=== PATIENT | female | born 1985 | race African-American/Black ===

== ENCOUNTER 2018-10-26 17:04 | Outpatient (CLI) | payer BC | END 2018-10-26 23:10 | disposition home or self-care (01) | LOC: OBT 17:04 → L-D 17:07 → OBT 23:10 | DX: O62.9 Abnormality of forces of labor, unspecified (principal); Z3A.38 38 weeks gestation of pregnancy | CPT/HCPCS: 76818 ==

== ENCOUNTER 2018-10-27 20:26 | Outpatient (CLI) | payer BC | END 2018-10-27 21:40 | disposition home or self-care (01) | LOC: OBT 20:26 → L-D 20:27 → OBT 21:40 | DX: O62.9 Abnormality of forces of labor, unspecified (principal); Z3A.39 39 weeks gestation of pregnancy | CPT/HCPCS: G0463 ==

== ENCOUNTER 2018-11-01 20:22 | Inpatient (IN) | payer BC ==
[2018-11-01] MEDS ORDERED: LACTATED RINGER'S 1,000 ML IV (23:47)
[2018-11-02] MEDS ORDERED: LIDOCAINE 1% (MPF) 30 ML INJ INJ
[2018-11-02] MEDS ORDERED: CARBOPROST 250 MCG INJ IM
[2018-11-02] MEDS ORDERED: OXYTOCIN 30 UNITS/LR 500 ML IV ×2
[2018-11-02] MEDS ORDERED: MISOPROSTOL 200 MCG TAB PR
[2018-11-02] MEDS ORDERED: BUTORPHANOL 2 MG INJ IV
[2018-11-02] MEDS ORDERED: METHYLERGONOVINE 0.2 MG INJ IM
[2018-11-02] MEDS: LACTATED RINGER'S 1,000 ML IV ×5 (00:51→20:47)
[2018-11-02] MEDS ORDERED: ONDANSETRON 4 MG INJ IV (01:30)
[2018-11-02] MEDS ORDERED: DIPHENHYDRAMINE 50 MG INJ IV (01:30)
[2018-11-02] MEDS ORDERED: NALOXONE (0.4 MG/ML) INJ IV (01:30)
[2018-11-02] MEDS ORDERED: FENTAnyl 2MCG/ML-ROPIV 0.2% 100 ML (01:33)
[2018-11-02 01:49] LABS: ADD MAN DIFF? NO
[2018-11-02 01:52] LABS: BASOPHILS % 0.5 % (0.0-2.0); EOSINOPHILS # 0.2 10^3/ul (0.0-0.5); EOSINOPHILS % 2.5 % (0.0-7.0); HEMATOCRIT 31.4 % (37.0-47.0); HEMOGLOBIN 10.5 g/dl (12.0-16.0); LYMPHOCYTES # 2.1 10^3/ul (0.8-2.9); LYMPHOCYTES % 25.9 % (15.0-51.0); MEAN CORPUSCULAR HEMOGLOBIN 31.9 pg (29.0-33.0); MEAN CORPUSCULAR HGB CONC 33.4 g/dl (32.0-37.0); MEAN CORPUSCULAR VOLUME 95.4 fl (82.0-101.0); MEAN PLATELET VOLUME 8.7 fl (7.4-10.4); MONOCYTE # 0.5 10^3/ul (0.3-0.9); NEUTROPHIL # 5.3 10^3/ul (1.6-7.5); NEUTROPHILS % 64.5 % (39.0-77.0); PLATELET COUNT 223 10^3/UL (140-415); RED BLOOD COUNT 3.29 10^6/ul (4.20-5.40); RED CELL DISTRIBUTION WIDTH 13.1 % (11.5-14.5)
[2018-11-02 01:52] LABS: WHITE BLOOD COUNT 8.1 10^3/ul (4.8-10.8)
[2018-11-02 02:10] LABS: INR 0.95; PROTIME 12.8 Sec (11.9-14.9)
[2018-11-02 02:11] LABS: PARTIAL THROMBOPLASTIN TIME 29.2 Sec (23.0-35.0)
[2018-11-02 02:57] LABS: HEPATITIS B SURFACE ANTIGEN NEGATIVE (NEGATIVE)
[2018-11-02] MEDS: FENTAnyl 2MCG/ML-ROPIV 0.2% 100 ML BAG EPI ×3 (05:06→18:24)
[2018-11-02] MEDS: OXYTOCIN 30 UNITS/LR 500 ML IV (12:51)
[2018-11-02 15:25] LABS: RAPID PLASMA REAGIN NONREACTIVE (NR)
[2018-11-03] MEDS: FENTAnyl 2MCG/ML-ROPIV 0.2% 100 ML BAG EPI ×4 (01:28→23:34)
[2018-11-03] MEDS: LACTATED RINGER'S 1,000 ML IV ×3 (04:54→20:07)
[2018-11-03] MEDS: OXYTOCIN 30 UNITS/LR 500 ML IV (14:04)
[2018-11-04] MEDS: MINERAL OIL LIGHT 10 ML VIAL TOP
[2018-11-04] MEDS ORDERED: SENNA/DOCUSATE NA (8.6MG/50MG) TAB PO ×2 (00:30→09:00)
[2018-11-04] MEDS ORDERED: MISOPROSTOL 200 MCG TAB PR (00:30)
[2018-11-04] MEDS ORDERED: ONDANSETRON 4 MG INJ IV (00:30)
[2018-11-04] MEDS ORDERED: CARBOPROST 250 MCG INJ IM (00:30)
[2018-11-04] MEDS ORDERED: OXYCODONE/ASPIRIN (4.88/325) TAB PO ×2 (00:30)
[2018-11-04] MEDS ORDERED: METHYLERGONOVINE 0.2 MG INJ IM (00:30)
[2018-11-04] MEDS ORDERED: NACL 0.9% 3 ML SYG IV (00:30)
[2018-11-04] MEDS ORDERED: OXYTOCIN 30 UNITS/LR 500 ML IV (00:30)
[2018-11-04] MEDS: OXYTOCIN 30 UNITS/LR 500 ML IV ×2 (01:18→05:17)
[2018-11-04] MEDS: IBUPROFEN 600 MG TAB PO ×4 (01:56→17:53)
[2018-11-04 03:33] LABS: ADD MAN DIFF? NO
[2018-11-04 03:52] LABS: INR 1.06; PROTIME 13.9 Sec (11.9-14.9); PT RATIO 1.1
[2018-11-04 03:53] LABS: PARTIAL THROMBOPLASTIN TIME 28.2 Sec (23.0-35.0)
[2018-11-04 03:57] LABS: ALANINE AMINOTRANSFERASE 14 IU/L (13-69); ALBUMIN 3.5 g/dl (3.3-4.9); ALBUMIN/GLOBULIN RATIO 1.09; ALKALINE PHOSPHATASE 177 IU/L (42-121); ANION GAP 8 (5-13); ASPARTATE AMINO TRANSFERASE 29 IU/L (15-46); BILIRUBIN,INDIRECT 0.6 mg/dl (0-1.1); BILIRUBIN,TOTAL 0.6 mg/dl (0.2-1.3); CALCIUM 9.8 mg/dl (8.4-10.2); CARBON DIOXIDE 19 mmol/L (21-31); CHLORIDE 110 mmol/L (97-110); CREATININE 0.39 mg/dl (0.44-1.00); Estimated GFR > 60 mL/min (>60); GLUCOSE 79 mg/dl (70-220); POTASSIUM 3.4 mmol/L (3.5-5.1); SODIUM 137 mmol/L (135-144); TOTAL PROTEIN 6.7 g/dl (6.1-8.1); URIC ACID 6.7 mg/dl (3.1-7.9)
[2018-11-04 04:05] LABS: BASOPHILS % 0.2 % (0.0-2.0); BLOOD UREA NITROGEN < 2 mg/dl (7-20); EOSINOPHILS % 0.2 % (0.0-7.0); HEMATOCRIT 33.6 % (37.0-47.0); HEMOGLOBIN 11.4 g/dl (12.0-16.0); LYMPHOCYTES # 0.8 10^3/ul (0.8-2.9); LYMPHOCYTES % 6.8 % (15.0-51.0); MEAN CORPUSCULAR HEMOGLOBIN 31.5 pg (29.0-33.0); MEAN CORPUSCULAR HGB CONC 33.9 g/dl (32.0-37.0); MEAN CORPUSCULAR VOLUME 92.8 fl (82.0-101.0); MEAN PLATELET VOLUME 8.6 fl (7.4-10.4); MONOCYTE # 0.8 10^3/ul (0.3-0.9); MONOCYTES % 6.6 % (0.0-11.0); NEUTROPHIL # 10.6 10^3/ul (1.6-7.5); NEUTROPHILS % 85.6 % (39.0-77.0); PLATELET COUNT 225 10^3/UL (140-415); RED BLOOD COUNT 3.62 10^6/ul (4.20-5.40); RED CELL DISTRIBUTION WIDTH 12.5 % (11.5-14.5)
[2018-11-04 04:05] LABS: WHITE BLOOD COUNT 12.3 10^3/ul (4.8-10.8)
[2018-11-04] MEDS: BENZOCAINE 20% 56 ML SPRAY TOP (05:16)
[2018-11-04] MEDS: WITCH HAZEL/GLYCERIN PAD PR (05:16)
[2018-11-04 05:27] LABS: ADD UMIC YES; UR ASCORBIC ACID NEGATIVE (NEGATIVE); UR BACTERIA FEW /HPF (NONE SEEN); UR BILIRUBIN (Dip) NEGATIVE (NEGATIVE); UR BLOOD (Dip) 3+ mg/dL (NEGATIVE); UR CLARITY SLIGHTLY CLOUDY (CLEAR); UR COLOR YELLOW (YELLOW); UR GLUCOSE (Dip) NEGATIVE (NEGATIVE); UR KETONES (Dip) 2+ mg/dL (NEGATIVE); UR LEUKOCYTE ESTERASE (Dip) TRACE Leu/ul (NEGATIVE); UR NITRITE (Dip) NEGATIVE (NEGATIVE); UR RBC > 182 /HPF (0-5); UR SPECIFIC GRAVITY (Dip) 1.009 (1.003-1.030); UR TOTAL PROTEIN (Dip) 1+ mg/dl (NEGATIVE); UR UROBILINOGEN (Dip) 2+ mg/dL (NEGATIVE); UR WBC 76 /HPF (0-5)
[2018-11-05] MEDS: IBUPROFEN 600 MG TAB PO ×4 (00:24→18:08)
[2018-11-05 06:45] LABS: HEMATOCRIT 29.2 % (37.0-47.0); HEMOGLOBIN 9.9 g/dl (12.0-16.0)
[2018-11-06] MEDS: IBUPROFEN 600 MG TAB PO ×2 (06:00)
== END 2018-11-06 11:59 | disposition home or self-care (01) | DRG 807 ==
LOC: OBT 20:22 → PP1 11-04 04:17 → L-D 20:22
PROVIDERS: Obstetrics & Gynecology
PROC: 10E0XZZ Delivery of Products of Conception, External Approach (ICD-10-PCS; principal; 2018-11-04)
DX: O80 Encounter for full-term uncomplicated delivery (principal); Z37.0 Single live birth; Z3A.40 40 weeks gestation of pregnancy
CPT/HCPCS: 62319; 76815; 76818; 80053; 81001; 84560; 85014; 85018; 85025; 85384; 85610; 85730; 86592; 86850; 86900; 86901; 87340; 90686